=== PATIENT | female | born 2000 | race Caucasian/White ===

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

== ENCOUNTER 2021-03-17 23:29 | Emergency (ER) | payer OTHER, MEDICAID, SELFPAY ==
[2021-03-17 23:17] VITALS: BP 136/92; PULSE 95; RESP 18; TEMP 36.6; O2SAT 98; BMI 26.5
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
[2021-03-18 01:20] VITALS: BP 136/92; PULSE 89; RESP 16; O2SAT 99
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
== END 2021-03-18 01:21 | disposition home or self-care (01) ==
PROVIDERS: Emergency Provider Emergency Medicine; PCP Nurse Practitioner
DX: S02.2XXA Fracture of nasal bones, initial encounter for closed fracture (principal); V49.9XXA Car occupant (driver) (passenger) injured in unspecified traffic accident, initial encounter
CPT/HCPCS: 70450; 70486; 72125; 99282

== ENCOUNTER → 2021-03-28 09:39 | Outpatient (BNVA) | payer MEDICAID, SELFPAY | PROVIDERS: PCP Nurse Practitioner; Visit Provider Nurse Practitioner | DX: E55.9 Vitamin D deficiency, unspecified (principal) | CPT/HCPCS: 80053; 82306 ==

== ENCOUNTER → 2021-04-10 11:29 | Outpatient (BNVA) | payer MEDICAID, SELFPAY | PROVIDERS: PCP Nurse Practitioner; Visit Provider Registered Nurse Neonatal Intensive Care | DX: N39.0 Urinary tract infection, site not specified (principal) | CPT/HCPCS: 81000 ==

== ENCOUNTER → 2021-04-18 10:04 | Outpatient (BNVA) | payer MEDICAID, SELFPAY | PROVIDERS: PCP Nurse Practitioner; Visit Provider Nurse Practitioner | DX: N39.0 Urinary tract infection, site not specified (principal); R39.9 Unspecified symptoms and signs involving the genitourinary system | CPT/HCPCS: 81000 ==

== ENCOUNTER 2021-07-04 10:19 | Outpatient (CLI) | payer MEDICAID, SELFPAY ==
--- NOTE | 2021-07-04 10:15 | US_ITS ---
WS: [id number] THYROID ULTRASOUND HISTORY: E04.1 - Nontoxic single thyroid nodule COMPARISON: 07/22/2020 Right lobe: 1.7 cm x 1.9 cm x 4.3 cm (w x ap x l). Volume: 7.3 cm3. Gland is very slightly enlarged. No mass. Very coarse echotexture throughout. No solid or cystic nodu les. Mild increased vascularity. Left lobe: 1.3 cm x 1.2 cm x 3.2 cm (w x ap x l). Volume: 2.7 cm3. Small thyroid with mild coarsened echotexture. Mild increased vascularity. No solid or cystic nodules . Isthmus: 0.5 cm. US/US thyroid [id number] IMPRESSION: 1. Mild coarse echotexture throughout the gland. Slight increased vascularity suggesting Montrell's disease. 2. No thyroid nodule.
== END 2021-07-04 10:20 | disposition home or self-care (01) ==
LOC: RAD 10:23
PROVIDERS: PCP Nurse Practitioner; Visit Provider Nurse Practitioner
DX: E04.1 Nontoxic single thyroid nodule (principal)
CPT/HCPCS: 76536

== ENCOUNTER → 2021-07-11 09:51 | Outpatient (BNVA) | payer MEDICAID, SELFPAY | PROVIDERS: PCP Nurse Practitioner; Visit Provider Nurse Practitioner | DX: E04.1 Nontoxic single thyroid nodule (principal) | CPT/HCPCS: 86800 ==

== ENCOUNTER → 2021-07-19 08:46 | Outpatient (BNVA) | payer MEDICAID, SELFPAY | PROVIDERS: PCP Nurse Practitioner; Visit Provider Nurse Practitioner | DX: E55.9 Vitamin D deficiency, unspecified (principal); E04.1 Nontoxic single thyroid nodule | CPT/HCPCS: 82306; 84443 ==

== ENCOUNTER → 2021-09-04 09:08 | Outpatient (BNVA) | payer MEDICAID, SELFPAY | PROVIDERS: PCP Nurse Practitioner; Visit Provider Nurse Practitioner | DX: E04.1 Nontoxic single thyroid nodule (principal) | CPT/HCPCS: 84443 ==

== ENCOUNTER → 2021-12-13 10:57 | Outpatient (BNVA) | payer MEDICAID, SELFPAY | PROVIDERS: PCP Nurse Practitioner; Visit Provider Nurse Practitioner | DX: E04.1 Nontoxic single thyroid nodule (principal); E55.9 Vitamin D deficiency, unspecified; E61.1 Iron deficiency | CPT/HCPCS: 80053; 82306; 83540; 84443 ==

== ENCOUNTER 2022-03-12 12:43 | Outpatient (CLI) | payer MEDICAID, SELFPAY ==
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
== END 2022-03-12 12:44 | disposition home or self-care (01) ==
LOC: RAD 12:44
PROVIDERS: PCP Nurse Practitioner; Visit Provider Nurse Practitioner Family
DX: D17.23 Benign lipomatous neoplasm of skin and subcutaneous tissue of right leg (principal)
CPT/HCPCS: 76882

== ENCOUNTER 2022-06-08 16:03 | Outpatient (CLI) | payer MEDICAID, SELFPAY ==
--- NOTE | 2022-06-08 | US_ITS ---
WS: [id number] THYROID ULTRASOUND HISTORY: Thyromegaly COMPARISON: 07/04/2021 Right lobe: 1.5 cm x 1.3 cm x 4.5 cm (w x ap x l). Volume: 4.3 cm3. Normal size gland with multiple coarse echotexture. No mass or nodule. No increased vascularity. Left lobe: 1.5 cm x 1.0 cm x 4.1 cm (w x ap x l). Volume: 3.2 cm3. Normal size gland with mild coarse echotexture. No mass or nodule. No increased vascularity. Isthmus: 0.2 cm. US/US thyroid [id number] IMPRESSION: 1. No increased vascularity throughout the gland to suggest acute thyroiditis. 2. No nodules or mass is identified. No significant enlargement.
== END 2022-06-08 16:04 | disposition home or self-care (01) ==
LOC: RAD 16:04
PROVIDERS: PCP Nurse Practitioner Family; Visit Provider Nurse Practitioner Family
DX: E01.0 Iodine-deficiency related diffuse (endemic) goiter (principal)
CPT/HCPCS: 76536

== ENCOUNTER → 2022-09-04 09:20 | Outpatient (BNVA) | payer MEDICAID, SELFPAY | PROVIDERS: PCP Nurse Practitioner Family; Visit Provider Nurse Practitioner Women's Health | DX: Z01.419 Encounter for gynecological examination (general) (routine) without abnormal findings (principal); L03.90 Cellulitis, unspecified | CPT/HCPCS: 88175 ==

== ENCOUNTER → 2022-12-18 08:37 | Outpatient (BNVA) | payer MEDICAID, SELFPAY | PROVIDERS: PCP Nurse Practitioner Family; Visit Provider Nurse Practitioner Women's Health | DX: Z34.90 Encounter for supervision of normal pregnancy, unspecified, unspecified trimester (principal); Z3A.00 Weeks of gestation of pregnancy not specified | CPT/HCPCS: 76817 ==

== ENCOUNTER 2022-12-18 09:48 | Outpatient (CLI) | payer MEDICAID, SELFPAY ==
[2022-12-18 10:13] LABS: Basophils % 0.6 %; Eosinophils # 0.1 10^3/uL (0.0-0.8); Eosinophils % 1.5 %; Hematocrit 40.7 % (37.0-47.0); Hemoglobin 13.8 g/dL (11.5-15.3); Lymphocytes # 2.8 10^3/uL (0.8-4.8); Lymphocytes % 42.2 %; Mean Corpuscular HGB Conc 33.9 g/dL (30.0-36.0); Mean Corpuscular Hemoglobin 30.9 pg (28.0-34.0); Mean Corpuscular Volume 91.1 fl (81-99); Mean Platelet Volume 9.3 fL (7.4-10.4); Monocytes # 0.5 10^3/uL (0.2-0.9); Monocytes % 7.8 %; Neutrophils % 47.6 %; Nucleated Red Blood Cells % 0 %; Platelet Count 321 10^3/cmm (130-400); Red Blood Count 4.47 10^6/uL (4.1-5.3); White Blood Count 6.5 10^3/uL (4.0-10.0)
== END 2022-12-18 09:49 | disposition home or self-care (01) ==
PROVIDERS: PCP Nurse Practitioner Family; Visit Provider Nurse Practitioner Women's Health
DX: O02.1 Missed abortion (principal)
CPT/HCPCS: 36415; 85025; 86850; 86900

== ENCOUNTER 2022-12-20 15:09 | Outpatient (CLI) | payer MEDICAID, SELFPAY ==
[2022-12-20 17:05] LABS: HCG Quantitative 3.03 mIU/mL
== END 2022-12-20 15:10 | disposition home or self-care (01) ==
PROVIDERS: PCP Nurse Practitioner Family; Visit Provider Nurse Practitioner Women's Health
DX: O02.1 Missed abortion (principal)
CPT/HCPCS: 36415; 84702

== ENCOUNTER 2022-12-22 11:25 | Outpatient (CLI) | payer MEDICAID, SELFPAY ==
[2022-12-22 12:19] LABS: HCG Quantitative 2.49 mIU/mL
== END 2022-12-22 11:26 | disposition home or self-care (01) ==
PROVIDERS: PCP Nurse Practitioner Family; Visit Provider Nurse Practitioner Women's Health
DX: N92.6 Irregular menstruation, unspecified (principal); O20.0 Threatened abortion
CPT/HCPCS: 36415; 84702

== ENCOUNTER → 2022-12-31 11:43 | Outpatient (BNVA) | payer MEDICAID, SELFPAY | PROVIDERS: PCP Nurse Practitioner Family; Visit Provider Nurse Practitioner Women's Health | DX: R10.2 Pelvic and perineal pain (principal); O72.2 Delayed and secondary postpartum hemorrhage | CPT/HCPCS: 76817 ==

== ENCOUNTER → 2023-03-19 08:30 | Outpatient (BNVA) | payer MEDICAID, SELFPAY | PROVIDERS: PCP Nurse Practitioner Family; Visit Provider Nurse Practitioner Women's Health | DX: Z31.9 Encounter for procreative management, unspecified (principal) | CPT/HCPCS: 84144 ==

== ENCOUNTER → 2023-04-08 14:24 | Outpatient (BNVA) | payer MEDICAID, SELFPAY | PROVIDERS: PCP Nurse Practitioner Family; Visit Provider Dermatology | DX: L70.0 Acne vulgaris (principal); D48.5 Neoplasm of uncertain behavior of skin | CPT/HCPCS: 11102; 99204 ==

== ENCOUNTER → 2023-08-07 14:18 | Outpatient (BNVA) | payer MEDICAID, SELFPAY | PROVIDERS: PCP Nurse Practitioner Family; Visit Provider Dermatology | DX: L70.0 Acne vulgaris (principal) | CPT/HCPCS: 99214 ==

== ENCOUNTER 2023-10-08 13:24 | Emergency (ER) | payer MEDICAID, SELFPAY ==
[2023-10-08 13:52] VITALS: BP 120/84; PULSE 85; RESP 16; TEMP 36.8; O2SAT 100; BMI 32.2
--- NOTE | 2023-10-08 14:07 | ED_ITS ---
HPI - Animal Bite General: Chief Complaint: Animal Bite Stated Complaint: Health dep. sent, rabies shot, dog bite Time Seen by Provider: 10/08/23 13:25 Source: patient Mode of arrival: ambulatory Limitations: no limitations History of Present Illness: Patient is a 23-year-old female presents to ED today for rabies postexposure prophylaxis as directed by the health department. Patient states she was bitten by a stray dog to the dorsal aspect of her right hand yesterday. She states she was petting the dog when it became skittish and bit her. Dog cannot be quarantined and monitored. Dog appeared well. She was seen at a [facility] and [facility] earlier today and had her tetanus updated and was placed on Augmentin. MD complaint: animal bite Onset (ago): day(s) (yesterday) Animal: dog Description of animal: immunizations unknown and appeared ill Mechanism: bite Location - Extremities: Right: hand Context: playing with animal and provoked Associated symptoms: Reports no associated symptoms; Deny fever(s) Related Data: Patient tetanus UTD: Yes Review of Systems Const: Denies: fever(s) Musc: Reports: extremity pain (bite to dorsal R hand) Neuro: Denies: numbness in extremities or sensory changes PFS ED PFSH: Medical History Encounter for surveillance of vaginal ring hormonal contraceptive device Body mass index 28.0-28.9, adult Benign thyroid cyst Vitamin D deficiency Iron deficiency Social anxiety disorder Surgical History No history of previous surgery Family History Grandmother Diabetes Other Hypertension Social History Smoking and tobacco/nicotine status: never used tobacco/nicotine Second hand smoke exposure: No Alcohol intake: never Substance/Drug Use: never Adopted: No Caregiver/support person: No Lives independently: Yes (family) Household members: family Housing: House Marital status: Single Number of children: 0 Highest education level completed: High School Graduate service: No Current occupational status: employed Current occupation: [employer] Current occupational exposures/hazards: No Pets and animals: Yes Do you think of yourself as: Straight/Heterosexual Current gender identity: Female Physical Exam Const: COMMON NORMALS: no acute distress, no limitations, healthy appearing and well nourished Extremity: COMMON NORMALS: full ROM GENERAL: Yes normal exam except as noted RIGHT UPPER EXTREMITY: Yes hand & digits (small 1-2mm puncture wound R dorsal hand near 3-4 MCP) Right hand and digits: Yes inspection (puncture site- small surrounding erythema; no drainage/streaking), Yes ROM exam (normal), Yes neurovascular exam (normal) and Yes tendon exam (normal) Neuro: COMMON NORMALS: moves all extremities, no focal motor deficits and no sensory deficits noted Skin: NARRATIVE SKIN EXAM: see above Course Vital Signs: Vital signs: Vital Signs Temperature 98.2 F 10/08/23 13:52 Pulse Rate 85 10/08/23 13:52 Respiratory Rate 16 10/08/23 13:52 Blood Pressure 120/84 10/08/23 13:52 Pulse Oximetry 100 10/08/23 13:52 Oxygen Delivery Me thod Room Air 10/08/23 13:52 [facility] - Animal Bite Medical Decision Making Patient had tetanus given to her earlier today at the [facility]. She has a prescription of Augmentin already called into her pharmacy. Patient was started on rabies PEP today. She will be given a schedule for remainder of vaccination series. Differential Diagnosis Likely bite by animal and dog bite Medical Records I reviewed the patient's medical records. No radiology studies performed this visit Discharge Plan Discharge Patient Disposition: Home Clinical Impression: Dog bite of right hand Condition: Stable Prescriptions: No Action levothyroxine 25 mcg tablet 25 mcg PO DAILY Qty: 30 5RF multivitamin Tablet 1 tab PO DAILY Discharge Orders: Discharge ED (Routine); Ordered 10/08/23 Ordered By: Regla Ortiz Referrals: Zaira Roa APN [Primary Care Provider] - Patient Instructions: Rabies Vaccine (By injection), Rabies Immune Globulin (By injection), Animal Bite (ED) Activity Restrictions/Additional Instructions: Fill your antibiotics and start them immediately. Keep wound clean with warm soap and water. Monitor for worsening signs of infection such as increased pain, redness, swelling, purulent or odorous drainage, streaking up your hand or arm, fevers, or any other concerns you may have. Please seek medical re- evaluation if these occur. You should have been provided a schedule for your repeat immunizations on days 3, 7, and 14. Coding Level of Care Code ED Fulling Mill Operator for Yennifer Grant
[2023-10-08] MEDS: rabies vaccine 2.5 unit SDV IM (14:34)
[2023-10-08] MEDS: rabies IG 300 unit/mL SDV 1 mL 1650 UNIT IM (14:36)
== END 2023-10-08 14:56 | disposition home or self-care (01) ==
PROVIDERS: Emergency Provider Physician Assistant; PCP Nurse Practitioner Family
DX: Z29.14 Encounter for prophylactic rabies immune globulin (principal); Z20.3 Contact with and (suspected) exposure to rabies; W54.0XXA Bitten by dog, initial encounter; S61.451A Open bite of right hand, initial encounter; Z23 Encounter for immunization
CPT/HCPCS: 90375; 90471; 90675; 96372; 99283

== ENCOUNTER 2023-10-11 09:35 | Oncology outpatient (recurring) (ONCR) | payer MEDICAID, SELFPAY ==
[2023-10-11] MEDS: rabies vaccine 2.5 unit SDV IM (10:53)
== END 2023-10-11 23:59 | disposition home or self-care (01) ==
PROVIDERS: PCP Nurse Practitioner Family; Visit Provider Physician Assistant
DX: Z20.3 Contact with and (suspected) exposure to rabies (principal); Z23 Encounter for immunization; S61.451A Open bite of right hand, initial encounter; W54.0XXA Bitten by dog, initial encounter; Z53.9 Procedure and treatment not carried out, unspecified reason
CPT/HCPCS: 90471; 90675

== ENCOUNTER 2023-10-22 10:00 | Oncology outpatient (recurring) (ONCR) | payer MEDICAID, SELFPAY ==
[2023-10-15] MEDS: rabies vaccine 2.5 unit SDV IM (11:04)
[2023-10-22 10:03] VITALS: BP 122/78; PULSE 91; RESP 16; TEMP 36.2; O2SAT 99
[2023-10-22] MEDS: rabies vaccine 2.5 unit SDV IM (10:07)
== END 2023-11-10 23:59 | disposition home or self-care (01) ==
PROVIDERS: PCP Nurse Practitioner Family; Visit Provider Physician Assistant
DX: Z20.3 Contact with and (suspected) exposure to rabies (principal); Z23 Encounter for immunization; S61.451A Open bite of right hand, initial encounter; W24.0XXA Contact with lifting devices, not elsewhere classified, initial encounter; Z53.9 Procedure and treatment not carried out, unspecified reason
CPT/HCPCS: 90471; 90675

== ENCOUNTER → 2024-02-26 15:16 | Outpatient (BNVA) | payer MEDICAID, SELFPAY | PROVIDERS: PCP Nurse Practitioner Family; Visit Provider Obstetrics & Gynecology | DX: O26.851 Spotting complicating pregnancy, first trimester (principal); O20.0 Threatened abortion | CPT/HCPCS: 81025; 84315; 84702 ==

== ENCOUNTER → 2024-02-28 09:25 | Outpatient (BNVA) | payer MEDICAID, SELFPAY | PROVIDERS: PCP Nurse Practitioner Family; Visit Provider Obstetrics & Gynecology | DX: O20.0 Threatened abortion (principal) | CPT/HCPCS: 84702 ==

== ENCOUNTER → 2024-03-04 10:48 | Outpatient (BNVA) | payer MEDICAID, SELFPAY | PROVIDERS: PCP Nurse Practitioner Family; Visit Provider Obstetrics & Gynecology | DX: Z34.90 Encounter for supervision of normal pregnancy, unspecified, unspecified trimester (principal) | CPT/HCPCS: 84702 ==

== ENCOUNTER → 2024-03-19 12:24 | Outpatient (BNVA) | payer MEDICAID, SELFPAY | PROVIDERS: PCP Nurse Practitioner Family; Visit Provider Obstetrics & Gynecology | DX: N83.201 Unspecified ovarian cyst, right side (principal) | CPT/HCPCS: 76801 ==

== ENCOUNTER → 2024-04-07 11:00 | Outpatient (BNVA) | payer MEDICAID, SELFPAY | PROVIDERS: PCP Nurse Practitioner Family; Visit Provider Nurse Practitioner Women's Health | DX: Z34.90 Encounter for supervision of normal pregnancy, unspecified, unspecified trimester (principal); Z3A.00 Weeks of gestation of pregnancy not specified | CPT/HCPCS: 80307; 84315; 84443; 85025; 86592; 86762; 86803; 86850; 86900; 87086; 87340; 87491; 87591; 87806 ==

== ENCOUNTER → 2024-04-22 09:58 | Outpatient (BNVA) | payer MEDICAID, SELFPAY | PROVIDERS: PCP Nurse Practitioner Family; Visit Provider Obstetrics & Gynecology | DX: Z34.90 Encounter for supervision of normal pregnancy, unspecified, unspecified trimester (principal); Z3A.00 Weeks of gestation of pregnancy not specified | CPT/HCPCS: 84315; 88175 ==

== ENCOUNTER → 2024-05-19 08:37 | Outpatient (BNVA) | payer MEDICAID, SELFPAY | PROVIDERS: PCP Nurse Practitioner Family; Visit Provider Nurse Practitioner Women's Health | DX: Z34.90 Encounter for supervision of normal pregnancy, unspecified, unspecified trimester (principal) | CPT/HCPCS: 82105; 84315 ==

== ENCOUNTER → 2024-06-10 09:27 | Outpatient (BNVA) | payer MEDICAID, SELFPAY | PROVIDERS: PCP Nurse Practitioner Family; Visit Provider Obstetrics & Gynecology | DX: O26.892 Other specified pregnancy related conditions, second trimester (principal); Z3A.20 20 weeks gestation of pregnancy | CPT/HCPCS: 76805 ==

== ENCOUNTER → 2024-06-17 08:32 | Outpatient (BNVA) | payer MEDICAID, SELFPAY | PROVIDERS: PCP Nurse Practitioner Family; Visit Provider Obstetrics & Gynecology | DX: Z34.92 Encounter for supervision of normal pregnancy, unspecified, second trimester (principal) | CPT/HCPCS: 84315 ==

== ENCOUNTER → 2024-07-08 08:44 | Outpatient (BNVA) | payer MEDICAID, SELFPAY | PROVIDERS: PCP Nurse Practitioner Family; Visit Provider Nurse Practitioner Women's Health | DX: Z34.90 Encounter for supervision of normal pregnancy, unspecified, unspecified trimester (principal) | CPT/HCPCS: 84315 ==

== ENCOUNTER → 2024-08-10 10:36 | Outpatient (BNVA) | payer MEDICAID, SELFPAY | PROVIDERS: PCP Nurse Practitioner Family; Visit Provider Obstetrics & Gynecology | DX: Z34.80 Encounter for supervision of other normal pregnancy, unspecified trimester (principal) | CPT/HCPCS: 82950; 84315; 85025 ==

== ENCOUNTER → 2024-08-24 10:58 | Outpatient (BNVA) | payer MEDICAID, SELFPAY | PROVIDERS: PCP Nurse Practitioner Family; Visit Provider Obstetrics & Gynecology | DX: Z34.90 Encounter for supervision of normal pregnancy, unspecified, unspecified trimester (principal); Z3A.10 10 weeks gestation of pregnancy | CPT/HCPCS: 84315 ==

== ENCOUNTER → 2024-08-27 13:04 | Outpatient (BNVA) | payer MEDICAID, SELFPAY | PROVIDERS: PCP Nurse Practitioner Family; Visit Provider Obstetrics & Gynecology | DX: O26.893 Other specified pregnancy related conditions, third trimester (principal); Z3A.32 32 weeks gestation of pregnancy | CPT/HCPCS: 76816 ==

== ENCOUNTER → 2024-09-01 08:32 | Outpatient (BNVA) | payer MEDICAID, SELFPAY | PROVIDERS: PCP Nurse Practitioner Family; Visit Provider Nurse Practitioner Women's Health | DX: Z34.90 Encounter for supervision of normal pregnancy, unspecified, unspecified trimester (principal) | CPT/HCPCS: 84315 ==

== ENCOUNTER → 2024-09-21 09:17 | Outpatient (BNVA) | payer MEDICAID, SELFPAY | PROVIDERS: PCP Nurse Practitioner Family; Visit Provider Nurse Practitioner Women's Health | DX: Z34.90 Encounter for supervision of normal pregnancy, unspecified, unspecified trimester (principal) | CPT/HCPCS: 76816; 84315 ==

== ENCOUNTER 2024-09-28 14:19 | Outpatient (CLI) | payer MEDICAID, SELFPAY ==
[2024-09-28 14:16] VITALS: BMI 38.6
[2024-09-28 14:38] VITALS: BP 119/66; PULSE 102; TEMP 35.5
[2024-09-28 14:53] VITALS: BP 114/57; PULSE 80
[2024-09-28 14:58] VITALS: TEMP 36.6
[2024-09-28 15:08] VITALS: BP 116/64; PULSE 85
[2024-09-28 15:29] VITALS: BP 116/64; PULSE 85; RESP 16; O2SAT 98
== END 2024-09-28 15:25 | disposition home or self-care (01) ==
LOC: OPOB 14:22 → OBGYN 14:28
PROVIDERS: PCP Nurse Practitioner Family; Visit Provider Obstetrics & Gynecology
DX: O26.899 Other specified pregnancy related conditions, unspecified trimester (principal); Z3A.00 Weeks of gestation of pregnancy not specified; R25.2 Cramp and spasm
CPT/HCPCS: 59025; 99211

== ENCOUNTER → 2024-10-08 12:13 | Outpatient (BNVA) | payer MEDICAID, SELFPAY | PROVIDERS: PCP Nurse Practitioner Family; Visit Provider Nurse Practitioner Women's Health | DX: Z3A.10 10 weeks gestation of pregnancy (principal) | CPT/HCPCS: 84315; 87081 ==

== ENCOUNTER → 2024-10-14 07:54 | Outpatient (BNVA) | payer MEDICAID, SELFPAY | PROVIDERS: PCP Nurse Practitioner Family; Visit Provider Obstetrics & Gynecology | DX: Z34.90 Encounter for supervision of normal pregnancy, unspecified, unspecified trimester (principal) | CPT/HCPCS: 84315 ==

== ENCOUNTER 2024-10-23 04:53 | Inpatient (IN) | payer MEDICAID, SELFPAY ==
--- OUTSIDE RECORDS SUMMARY | 2024-03-19 06:40 | XMS_ITS ---
Author Organization [facility] Address [address] [place] [address] Care Team Providers Care Senior Partner Name Role Phone Joel Roa Primary Care Provider ROA, JOEL Unavailable Unavailable REASON FOR VISIT 1 month f/u Encounters Encounter Location Date Provider Diagnosis [facility] Office [address] [place] [id number] 03/19/2024 Joel Roa Plan Of Treatment No Information Progress Notes * ANDRAEManishMariel SDOB:2000 (24 yo F)Acc No.[id number]:03/19/2024 Progress Notes Patient: Mariel SMITH Provider: Matt Roa PATIENT COORDINATOR :2000 A ge:23 Y S ex:Female Date:03/19/2024 Address:[address] [place] [address] [id number] Subjective: * Chief Complaints: * 1 . 1 month f/u. * Medical History: Objective: * Vitals: Assessment: Plan: * Treatment: Forms: * Billing Information: * Visit Code: * Procedure Codes: Care Plan Details* * Electronic signature of Erich Roa APN on 10/23/2024 at 04:57 AM CDT Sign off status: Pending * Provider: Matt Roa PATIENT COORDINATOR Date: 1 05/19/2023 Generated for Printi ng/Faxing/eTransmitting on: 0 10/23/2024 04:57 AM CDT
--- NOTE | 2024-10-21 09:51 | P.ANESASSM_ITS ---
Pre-Anesthetic Assessment Height/Weight: Height 1.6 m Preop Diagnosis: IUP - breech position Familial anesthetic complications: None Social No alcohol and No tobacco Exam alert, oriented x 3, clear to auscultation bilaterally and regular rate & rhythm Airway Mallampati: Class II Dentition: full Metabolic Morbid Obesity and Thyroid Disease Anesthetic Plan ASA status: 3 Anesthesia: Regional (specify below) Other: spinal Risk of > 500 ml blood loss (7ml/kg in children): Yes, adequate IV access and fluids planned Medications/Allergies Home Medications ?Medication ?Instructions ?Recorded ?Confirmed ?Last Taken ?Type multivitamin 1 tab PO DAILY 01/28/2310/11 Unknown History clindamycin phosphate 1 % topical 1 applic topical SAIGE LY 03/04/24 10/21/24 Unknown History solution levothyroxine 25 mcg tablet 50 mcg PO DAILY 05/19/24 0 10/21/24 Unknown History famotidine 20 mg tablet See Rx Instructions .Route 0 10/08/24 10/21/24 Unknown Rx .COMPLEX #60 tabs Allergies Allergy/AdvReac Type Severity Reaction Status Date / Time No Known Allergies Allergy Verified 10/21/24 08:11 [facility] Anesthesia Medical History Encounter for surveillance of vaginal ring hormonal contraceptive device Body mass index 28.0-28.9, adult Benign thyroid cyst Vitamin D deficiency Iron deficiency Social anxiety disorder Surgical History No history of previous surgery Family History Grandmother Diabetes Other Hypertension Social History Smoking and tobacco/nicotine status: never used tobacco/nicotine
[2024-10-23] VITALS (33 sets, daily range): BP systolic 102–129; BP diastolic 52–78; PULSE 63–97; RESP 15–16; TEMP 36.6–36.9; O2SAT 96–98; BMI 39.8
--- OUTSIDE RECORDS SUMMARY | 2024-10-23 04:57 | XMS_ITS | Patient Health Record ---
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 Name Role Phone [facility] Primary Care Provider [facility] Unavailable Unavailable Allergies Allergen (clinical drug ingredient) Drug/Non Drug Allergy documented on EMR Reaction Allergy Type Onset Date Status Substance with sulfonamide structure and antibacterial mechanism of action (substance) Sulfa Antibiotics Unknown Drug Allergy Active Reason For Referral No Information Medications Medication SIG (Take, Route, Frequency, Duration) Notes Start Date End Date Status M- Plus 27-1 MG 1 tablet Orally Onc e a day for 30 days 02/17/2024 Active Clindamycin Phos-Benzoyl Perox 1.2-5 % APPLY TO CLEAN DRY FACE ONCE DAILY IN THE MORNING External for 30 Days Active Phentermine HCl 37.5 MG TAKE ONE TABLET BY MOUTH DAILY (30 DAYS) Oral for 30 Days Not-Taking Levothyroxine Sodium 50 mcg TAKE ONE TABLET BY MOUTH ONCE DAILY for 30 Active Active Retin-A 0.1 % apply pea sized amou nt TO clean, dry face nightly External for 30 Days Not-Taking Fluconazole 150 mg TAKE ONE TABLET BY MOUTH EVERY DAY FOR 3 DAYS for 3 Not-Taking Immunizations Vaccine Route Administration Date Status Comme nts Flucelvax Quadrivalent IM Intramuscular 02/19/2023 Administered [facility] [address]-03 pt tolerated well/instructed to wait 20 min Flucelvax Quadrivalent Pres Free IM Intramuscular 03/01/2022 Administered [facility] [address]-839-2 3 pt tolerated well/instructed to wait 20 min Flucelvax Trivalent, Syringe 0.5 mL, PF IM Intramuscular 02/17/2024 Administered supplied by [facility]/pt tolerated well/instructed to wait 20 min Tdap IM Intramuscular 10/08/2023 Administered vial s upplied by [facility]/pt tolerated well/instructed to wait 20 min Social History Tobacco Use: Social History Observation Description Date Details (start date - stop date) Never Smoker NA - NA xTobacco Use/Smoking Question Answer Notes Are you a nonsmoker Alcohol Screen (Audit-C) Question Answer Notes Did you have a drink containing alcohol in the p ast year? No Points 0 Interpretation Negative PHQ-9 Question Answer Notes Little interest or pleasure in doing things Not at all Feeling down, depressed, or hopeless Not at all Trouble falling or staying asleep, or sleeping t oo much Not at all Feeling tired or having little energy Not at all Poor appetite or overeating Not at all Feeling bad about yourself, or that you are a failure, or have let yourself or your family down Not at all Trouble concentrating on thi ngs, such as reading the newspaper or watching television Not at all Moving or speaking so slowly that other people could have noticed. Or the opposite ? being so fidgety or restless that you have been moving around a lot more than usual Not at all Thoughts that you would be b roly off , or of hurting yourself in some way Not at all Total Score 0 Section Notes: 01/29/2022 01/29/2022 01/29/2022 01/29/2022 Depression screening 06/29/19 23 Depression screening 06/29/19 23 Depression screening 06/29/19 23 Depression screen completed 10/01/2023 score 0 Depression screen completed 10/01/2023 score 0 Depression screen completed 10/01/2023 score 0 Depression screen completed 10/01/2023 score 0 Depression screen completed 10/01/2023 score 0 Depression screen completed 10/01/2023 score 0 01/29/2022 Depression screening 06/29/19 23 Problems Problem Type SNOMED Code ICD Code Onset Dates Problem Status W/U Status Risk Notes Problem Body mass index 30.00 to 34.99 (648226649165647) Body mass index [BMI] 34.0-34.9, adult (Z68.34) Active confirmed Problem 940618951 Body mass index [BMI] 31.0-31.9, adult (Z68.31) Active confirmed Problem 3267781091014381 Lipoma of right lower extremity (D17.23) Active confirmed Problem 24468808 Acute swimmer's ear of left side (H60.332) Active confirmed Problem 532131804 Environmental allergies (Z91.09) Active confirmed Problem 575909420 Acquired hypothyroidism (E03.9) Active confirmed Problem [id number] Obesity (BMI 30.0-34.9) (E66.9) Active confirmed Problem 400003381 Overweight (BMI 25.0-29.9) (E66.3) Active confirmed Problem 8522948 Thyromegaly (E01.0) Active confirmed Problem 486685741 Obesity (BMI 30-39.9) (E66.9) Active confirmed Problem 03184281 Acute non-recurrent maxillary sinusitis (J01.00) Active confirmed Problem Amenorrhea (48174521) Amenorrhea (N91.2) Active confirmed Problem 842365348 Obesity, morbid (E66.01) Active confirmed Problem 576672188 Overweight (E66.3) Active confirmed Vital Signs Heart Rate 106 /min 02/17/2024 Temperature 97.5 degrees Fahrenheit 01/17/2024 Respiratory Rate 18 /min 02/17/2024 Height-cm 160.02 cm 02/17/2024 Oximetry 99 % 02/17/2024 Blood pressure diastolic 75 mm Hg 02/17/2024 Weight-kg 74.84 kg 02/17/2024 Height 63 in 02/17/2024 Blood pressure systolic 128 mm Hg 02/17/2024 Weight 165 lbs 02/17/2024 BMI 29.23 kg/m2 02/17/2024 Encounters Encounter Location Date Provider Diagnosis [facility] [address] [address] 11/12/2023 Zaira Roa Obesity (BMI 30-39.9 ) E66.9 [facility] [address] [place] [address] 12/17/2023 Zaira Roa Obesity (BMI 30-39.9 ) E66.9 and Acquired hypothyroidism E03.9 [facility] [address] [facility] [address] [place] [address] 01/17/2024 [facility] Overweight (BMI 25.0-29.9) E66.3 and Acquired hypothyroidism E03.9 [facility] [address] [address] 02/17/2024 [facility] Amenorrhea N91.2 ; A cne L70.9 ; Encounter for immunization Z23 ; Z33.1 and Encounter for administration of vaccine Z23 Assessments Encounter Date Diagnosis (ICD Code) Assessment Notes Treatment Notes Treatment Clinical Notes Section Notes 02/17/2024 Amenorrhea (ICD-10 - N91.2) urine test; negative initially; then positive; slight faint vitamin 02/17/2024 Acne (ICD-10 - L70.9) clindamycin topical 01/17/2024 Overweight (BMI 25.0-29.9) (ICD-10 - E66.3) Discussed with the diet, increase water intake, increase activity, decrease calorie intake, take medication as directed; phentermine e script to patient pharmacy. Patient to lose minimum of 4 pounds and return to clinic 1 month and prn. Pts questions asked and answered. Discharged to home. 01/17/2024 Acquired hypothyroidism (ICD-10 - E03.9) levothyroxine 11/12/2023 Obesity (BMI 30-39.9) (ICD-10 - E66.9) Discussed with the diet, increase water intake, increase activity, decrease calorie intake, take medication as directed; phentermine e script to patient pharmacy. Patient to lose minimum of 4 pounds and return to clinic 1 month and prn. Pts questions asked and answered. Discharged to home. 12/17/2023 Obesity (BMI 30-39.9) (ICD-10 - E66.9) Discussed with the diet, increase water intake, increase activity, decrease calorie intake, take medication as directed; phentermine e script to patient pharmacy. Patient to lose minimum of 4 pounds and return to clinic 1 month and prn. Pts questions asked and answered. Discharged to home. 12/17/2023 Acquired hypothyroidism (ICD-10 - E03.9) levothyroxine 02/17/2024 Encounter for immunization (ICD-10 - Z23) flu shot Immunization supplied by [employer]. 02/17/2024 (ICD-10 - Z33.1) 02/17/2024 Encounter for administration of vaccine (ICD-10 - Z23) 11/12/2023 Other Questions asked and answered; discharged to home. 12/17/2023 Other Questions asked and answered; discharged to home. 01/17/2024 Other Questions asked and answered; discharged to home. 02/17/2024 Other Questions asked and answered; discharged to home. Give Flu vaccine as directed per provider Plan Of Treatment No Information Insurance Providers Payer Name Payer Address Payer Phone Subscriber Number Group Number Insured Name Patient Relationship to Insured Coverage Start Date Coverage End Date [place] Medicaid [address] [place] [address] [id number] Mariel Abebe Self - patient is the insured Medical (General) History Medical History History ICD Code chronic bladder infections hives anxiety fractured nose thyroid problems Surgical History Surgery Date(Month/Year) wisdom teeth extraction
--- OUTSIDE RECORDS SUMMARY | 2024-10-23 04:57 | XMS_ITS | Clinical Summary ---
Author Organization [facility] Address [address] Merchantn: Epic Prelude ADT ELIZABETH CACERES [address] Care Team Providers Care Science Technicians Name Role Phone German Buchanan NP Primary Care Provider Allergies No known active allergies Medications norgestimate-eth inyl estradioL (ORTHO TRI-CYCLEN) 0.18/0.215/0.25 mg-35 mcg (28) tablet Take 1 Tablet by mouth daily. 01/20/2019 Active sertraline (ZOLOFT) 25 mg tablet Take 25 mg by mouth daily. 01/20/2019 Active naproxen sodium (ALEVE) 220 mg Tablet Take 220 mg by mouth every 4 hours as needed for Pain, Moderate. 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 Gender Identity Not on file Sexual Orientation Not on file Last Filed Vital Signs Vital Sign Reading Time Taken Comments Blood Pressure 118/72 01/20/2019 12:01 PM CDT manual bp lg rt Pulse 74 01/20/2019 12:01 PM CDT Temperature - - Respiratory Rate - - Oxygen Saturation - - Inhaled Oxygen Concentration - - Weight 68.9 kg (151 lb 14.4 oz) 01/20/2019 12:01 PM CDT Height 158.8 cm (5' 2.52 ) 01/20/2019 1 2:01 PM CDT Body Mass Index 27.32 01/20/2019 12:01 PM CDT Plan of Treatment Health Maintenance Due Date Last Done Comments CHLAMYDIA SCREENING (ANNUAL) 11-24 YEARS 2012 HPV VACCINES (1 - 3-dose series) 2016 DTAP/TDAP/TD VACCINES (1 - Tdap) 2020 HEPATITIS B VACCINES (1 of 3 - 19+ 3-dose series) 08/12 CERVICAL CANCER SCREENING 2022 HPV/Cotest (21-29) 2022 PAP SMEAR 2022 INFLUENZA VACCINE (#1) 2023 Care Teams Science Technicians Relationship Specialty Start Date End Date German Buchanan NP [address] [place] [phone] PCP - General NURSE PRACTITIONER 01/15/19
--- OUTSIDE RECORDS SUMMARY | 2024-10-23 04:57 | XMS_ITS | Clinical Summary ---
Author Organization [facility] Address [address] [place] [address] Care Team Providers Care Family Protection Specialist Name Role Phone German Buchanan NP Primary Care Provider Allergies No known active allergies Medications naproxen sodium (ALEVE) 220 mg Tablet Take 220 mg by mouth every 4 hours as needed for Pain, Moderate. Active norgestimate-eth inyl estradiol (TRI-SPRINTEC, 28,) 0.18/0.215/0.25 mg-35 mcg (28) tablet Take 1 Tablet by mouth daily. Active sertraline (ZOLOFT) 25 mg tablet Take 25 mg by mouth daily. Active Active Problems No known active problems Social History Tobacco Use Types Packs/Day Years Used Date Smoking Tobacco: Never Comments Unknown Sex and Gender Information Value Date Recorded Sex Assigned at Not on file Legal Sex Female 8:59 AM CDT Gender Identity Not on file Sexual Orientation [...] PAP SMEAR 2022 INFLUENZA VACCINE (#1) 2023 Insurance [facility] [employer] Care Teams Family Protection Specialist Relationship Specialty Start Date End Date German Buchanan NP [address] [place] [address] PCP - General NURSE PRACTITIONER 01/15/19
--- OUTSIDE RECORDS SUMMARY | 2024-10-23 04:58 | XMS_ITS | Encounter Summary ---
Author Organization [facility] Address [address] [place] [address] Care Team Providers Care Resident Service Coordinator Name Role Phone German Buchanan NP Primary Care Provider [phone] Reason for Referral * Radiology Services (Routine) - Closed Specialty Diagnoses / Procedures Referred By Juan banuelos Referred To Contact Radiology Diagnoses Multiple thyroid nodules Procedures US HEAD NECK TISSUES US GUIDED ASPIRATION Mari Keller MD Phone: tel: fax: [facility] [address] [place] [address] Phone: tel: fax: Referral ID Status Reason Start Date Expiration Date Visits Re quested Visits Authorized [id number] Closed 01/21/2019 02/21/2020 1 1 Encounter Details Date Type Department Care Team (Latest Contact Info) Description 01/23/2019 Ancillary Orders [facility] Pediatric Endocrinology & Diabetes-[address] [place] [phone] Mari Keller MD [address] [place] [address] Multiple thyroid nodules Social History Tobacco Use Types Packs/Day Years Used Date Smoking Tobacco: Never Comments Unknown Sex and Gender Information Value Date Recorded Sex Assigned at Not on file Legal Sex Female 8:59 AM CDT Gender Identity Not on file Sexual Orientation Not on file documented as of this encounter Plan of Treatment Not on file documented as of this encounter Results * US HEAD NECK TISSUES (01/23/2019 2:50 PM CDT) Anatomical Region Laterality Modality Head Ultrasound 01/23/2019 2:50 PM CDT Impressions 01/23/2019 3:05 PM CDT IMPRESSION: See below. Exam: US HEAD NECK TISSUES Date/Time of Exam: 01/23/2019 2:50 PM Reason For Exam: See Diagnosis. Diagnosis: Multiple thyroid nodules. Findings: Along the superficial left mid thyroid is a 2 x 3 x 2 mm isoechoic, ill-defined nodule with a single punctate echogenic focus centrally. Additional posterior left thyroid nodule measures 0.7 x 0.4 x 0.5 cm which is slightly hyperechoic with cystic and solid components as well as a single punctate echogenic. Impression: 2 x 3 x 2 mm isoechoic, ill-defined nodule with a single punctate echogenic focus centrally. This nodule is indeterminate and FNA was not performed at this time. Given possible suspicious appearance on prior examination, a 6 follow-up ultrasound will be obtained as discussed. This was discussed with Dr. Keller. I also discussed this with the patient and the patient's mother at the time of examination. 7 mm hyperechoic, cystic and solid nodule with a single punctate echogenic focus within the mid left thyroid. Attention on follow-up is recommended. Narrative Procedure Note Eris Jackson, - 01/23/2019 IMPRESSION: See below. Exam: US HEAD NECK TISSUES Date/Time of Exam: 01/23/2019 2:50 PM Reason For Exam: See Diagnosis. Diagnosis: Multiple thyroid nodules. Findings: Along the superficial left mid thyroid is a 2 x 3 x 2 mm isoechoic, ill-defined nodule with a single punctate echogenic focus centrally. Additional posterior left thyroid nodule measures 0.7 x 0.4 x 0.5 cm which is slightly hyperechoic with cystic and solid components as well as a single punctate echogenic. Impression: 2 x 3 x 2 mm isoechoic, ill-defined nodule with a single punctate echogenic focus centrally. This nodule is indeterminate and FNA was not performed at this time. Given possible suspicious appearance on prior examination, a 6 follow-up ultrasound will be obtained as discussed. This was discussed with Dr. Keller. I also discussed this with the patient and the patient's mother at the time of examination. 7 mm hyperechoic, cystic and solid nodule with a single punctate echogenic focus within the mid left thyroid. Attention on follow-up is recommended. us Mari Keller MD US ORDERABLES Final Result documented in this encounter Visit Diagnoses Diagnosis Multiple thyroid nodules Nontoxic multinodular goiter Multiple thyroid nodules Nontoxic multinodular goiter documented in this encounter Care Teams Resident Service Coordinator Relationship Specialty Start Date End Date German Buchanan NP [address] [place] [phone] PCP - General NURSE PRACTITIONER 01/15/19 documented as of this encounter
[2024-10-23 05:32] LABS: Basophils % 0.3 %; Eosinophils # 0.1 10^3/uL (0.0-0.8); Eosinophils % 0.8 %; Hematocrit 37.7 % (36-47); Lymphocytes # 2.2 10^3/uL (0.8-4.8); Lymphocytes % 25.5 %; Mean Corpuscular HGB Conc 34.5 g/dL (30-55); Mean Corpuscular Hemoglobin 31.4 pg (27-33); Mean Corpuscular Volume 91.1 fl (85-98); Mean Platelet Volume 9.8 fL (7.4-10.4); Monocytes # 0.8 10^3/uL (0.2-0.9); Monocytes % 8.6 %; Neutrophils # 5.64 10^3/uL (1.8-7.7); Neutrophils % 64.3 %; Nucleated Red Blood Cells % 0 %; Platelet Count 221 10^3/cmm (157-399); Red Blood Count 4.14 10^6/uL (3.85-5.65); Red Cell Distribution Width 13.2 % (12.1-15.1); White Blood Count 8.76 10^3/uL (3.29-11.43)
[2024-10-23] MEDS: sodium chloride 0.9% 1,000 ML 999 ML IV (05:59)
--- NOTE | 2024-10-23 06:36 | PM.OPHPUD ---
Labor & Delivery H&P Update Date of Procedure: October 23, 2024 Date H&P Performed: 10/21/24 Changes to previous documentation: 24-year-old female with LMP 01/24/2024, DYANA 10/30/2024 at 39 weeks gestation admitted to labor and delivery for scheduled primary section due to breech presentation. Patient admits to good movement, she denies contractions, vaginal bleeding or leakage of fluid. Patient's record has been reviewed, with no changes noted. Patient was seen this morning, I introduced myself to patient and her significant other and I explained that I would be doing her surgery this morning instead of Dr. Banerjee. Risk and benefits of the procedure to include bleeding, infection, injury to pelvic organs blood vessels and nerves. Patient has had an anesthesia consultation and understand those risk as well. EFM?category 1 Admission Diagnosis: Preop diagnosis: IUP - breech position Primary indication for procedure: Roderick breech presentation at 39 weeks gestation Planned procedure: Primary section Related Problem List Diagnoses (1) 39 weeks gestation of : (2) Breech presentation, antepartum: (3) Acid reflux: On famotidine (4) Body mass index 28.0-28.9, adult: (5) Eczema: (6) Benign thyroid cyst: On levothyroxine 50 mcg p.o. daily (7) Social anxiety disorder: Currently on no medication
[2024-10-23] MEDS: famotidine 20 mg/2 mL INJ IVP (06:39)
[2024-10-23] MEDS: metoclopramide 5 mg/mL SDV 2 mL 10 MG IVP (06:39)
[2024-10-23] MEDS: ceFAZolin 2,000 mg SDV 2000 MG IVP (06:39)
--- NOTE | 2024-10-23 08:11 | P.OP_ITS ---
Operative Report Date of procedure: October 23, 2024 Pre-op diagnosis: 24-year-old female G1, P0 at 39 weeks gestation. Malpresentation (khalif breech) Post-op diagnosis: same Post-op findings: Viable male 8 pounds 4 ounces Procedure done: Primary low-transverse section Specimens removed/disposition: Placenta Surgeon: Asya Vanegas DO Anesthesia: Spinal Estimated blood loss (mL): 1,500 Complications: None Condition: stable Disposition: floor Brief History: 24-year-old female G1, P0 now G1, P1 admitted for scheduled primary section due to khalif breech presentation at 39 weeks gestation. care uncomplicated. Procedure: 24-year-old female delivered by scheduled primary section. Patient was taken to the OR suite after consents being signed and risk and benefits reviewed. Patient was positioned in the sitting position and anesthesia placed a spinal without complications. Patient was repositioned in supine position with a left lateral tilt. Adame catheter was placed in the bladder for drainage during the procedure and the abdomen prepped and draped in the standard fashion. Timeout was performed and witnessed. A Pfannenstiel incision was made with a knife and extended to the fascia. The fascia was incised and the incision lateralized. The rectus muscles was dissected from the fascia superiorly and inferiorly. The rectus muscles was entered in the midline and the peritoneum opened bluntly. A bladder flap was created with Metzenbaums and pickups and displaced with the bladder blade. A low transverse uterine incision was made with a knife and extended bluntly. The amnion was entered with clear fluid noted. The baby's blood was noted, the legs were extended through the incision, followed by the butt up to the level of the scapulas. The arms were then flexed and delivered to the incision. The body was extended vertical and the head delivered in a flexed position. Spontaneous robust cry was noted. The oral and nasal pathways bulb suctioned. The umbilical cord was clamped and cut and the baby placed on the warmer for waiting preschool head teacher to evaluate. Arterial pH and cord blood were drawn and handed off. The placenta was manually removed the uterus exteriorized and wiped clean with a moist lap sponge. IV solution containing Pitocin was started in a bolus manner. The uterus was massaged and firmed well. The cervix was gently dilated. The uterine incision was then closed with 0 Vicryl in a running interlocking stitch with good approximation and hemostasis. The posterior cul-de-sac and sidewalls were wiped clean with a moist lap sponge. The incision inspected and noted to be hemostatically intact. The uterus was replaced in the abdomen, the peritoneum and rectus muscle approximated with 2-0 Vicryl. The fascia was approximated with 0 Vicryl in a running stitch. The subcu fat approximated with 2-0 Vicryl and the skin with 4-0 Vicryl in a subcuticular manner. The incision cleansed, dried and a pressure dressing applied. The uterus was massaged and remained firm. The uterus and vaginal vault were then expressed and cleansed. Mother and both in stable satisfactory condition Weight?8 pounds 4 ounces ?01/19 EBL 1500 complications?none anesthesia?spinal Surgeon?Dr. Vanegas Related Problem List Diagnoses (1) Delivery by section: (2) 39 weeks gestation of : (3) Breech presentation, antepartum: (4) Social anxiety disorder:
[2024-10-23] MEDS: ketorolac 30 mg/mL INJ IVP ×3 (10:38→22:30)
[2024-10-23] MEDS: dextrose 5%-lactated ringers 1,000 ML 125 ML IV (10:39)
[2024-10-23 20:03] LABS: Hematocrit 32.4 % (36-47); Mean Corpuscular Hemoglobin 31.3 pg (27-33); Mean Platelet Volume 9.8 fL (7.4-10.4); Platelet Count 208 10^3/cmm (157-399); Red Blood Count 3.52 10^6/uL (3.85-5.65); Red Cell Distribution Width 13.3 % (12.1-15.1); White Blood Count 10.45 10^3/uL (3.29-11.43)
[2024-10-23] MEDS: lanolin oint 7 gm 1 APPLIC TOPICAL (20:30)
[2024-10-23] MEDS: docusate sodium 100 mg Capsule PO (20:30)
[2024-10-24] MEDS: ketorolac 30 mg/mL INJ IVP (04:29)
[2024-10-24 04:32] VITALS: BP 118/59; PULSE 77
--- NOTE | 2024-10-24 09:24 | P.PN_ITS ---
DIRECTOR OF MEDICAL SERVICES Subjective 2 Subjective: Interval history: 24-year-old female G2, P1 s/p primary C- section for breech presentation at 39 weeks. Patient is doing well without complaints. She denies headaches blurred vision, shortness of breath or chest pain. She has voided, passing gas and has ambulated well in the room. Patient is encouraged to increase fluids, high-fiber diet and ambulation to the hallway. She is encouraged to shower, incision instructions given. Pain meds and risk reviewed as well. Patient verbalizes understanding. Labor: Amniotic Membrane Status: Intact Monitor Mode: External C ontraction Pattern: Absent Vitals/I&O/Wt Last Vital Signs Temp 97.9 F 10/23/24 19:44 Pulse 77 10/24/24 04:32 Resp 16 10/23/24 19:44 BP 118/59 10/24/24 04:32 Pulse Ox 96 10/23/24 08:45 O2 Del Method Room Air 10/23/24 08:45 10/23/24 10/24/24 10/24/24 22:59 06:59 14:59 Output Total 400 / 2325 Balance -400 / -425 Weight last 48 hrs Weight 102.058 kg Physical Exam 2 Back/Pelvis: OTHER: Abdomen?soft, fundus firm below umbilicus. Incision?bandage removed, clean dry and intact. Extremity: COMMON NORMALS: normal to inspection, no clubbing, cyanosis or edema and no calf tenderness Urinary Catheter Management: Latex Free: Cath Placed During This Visit: yes, but has since been removed by the nurse Reason for Continuing Indwelling Catheter: Decision to DC Catheter Urinary Catheter Date of Insertion: 10/23/24 Urinary Catheter Time of Insertion: 07:10 Date Urinary Catheter Removed: 10/23/24 Time Urinary Catheter Discontinued: 18:45 Data 10/23/24 19:46 A&P Assessment and plan (1) Delivery by section: POD #1 doing well. (2) 39 weeks gestation of : (3) Breech presentation, antepartum: PDMP PDMP Reviewed: Not Reviewed Attestations 2 Medical Necessity Statement*: Patient was admitted to labor and delivery for scheduled primary section due to malpresentation (breech) Coding Level of Care Code Acute Code for Chg Fwd Diagnoses Delivery by section 39 weeks gestation of Z3A.39 Breech presentation with problem, single or unspecified fetus O32.1XX0 Fetus number: single or unspecified fetus
[2024-10-24] MEDS: ferrous sulfate EC 325 mg Tablet PO (10:46)
[2024-10-24] MEDS: docusate sodium 100 mg Capsule PO ×2 (10:46→20:09)
[2024-10-24] MEDS: PRENATAL VIT NO.130/IRON/FOLIC 1 EACH TABLET PO (10:46)
[2024-10-24] MEDS: acetaminophen 325 mg Tablet 650 MG PO (10:46)
[2024-10-24 11:18] VITALS: BP 124/77; PULSE 87
[2024-10-24] MEDS: ibuprofen 800 mg tablet PO ×3 (12:54→20:09)
[2024-10-24] MEDS: simethicone 80 mg Chew PO (12:55)
[2024-10-24 20:09] VITALS: BP 124/67; PULSE 88; RESP 16; TEMP 37.1
[2024-10-25] MEDS: acetaminophen 325 mg Tablet 650 MG PO (02:08)
[2024-10-25 04:01] VITALS: BP 124/72; PULSE 85
[2024-10-25] MEDS: ibuprofen 800 mg tablet PO (08:39)
[2024-10-25] MEDS: PRENATAL VIT NO.130/IRON/FOLIC 1 EACH TABLET PO (08:39)
[2024-10-25] MEDS: docusate sodium 100 mg Capsule PO (08:39)
[2024-10-25 11:32] VITALS: BP 129/76; PULSE 71; TEMP 36.7
--- NOTE | 2024-10-25 11:38 | PM.OBGYDC ---
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 Patient is doing well and without complaints. She denies headaches, blurred vision, shortness of breath or chest pain. She denies excessive bleeding and passage of large clots. Patient is attempting breast-feeding but having trouble with latching. consultation has been performed and patient verbalizes understanding of techniques, urged to have patient's and to continue attempting to breast-feed. Postop expectations reviewed to include no heavy lifting pushing or pulling, no sexual intercourse douching or tampons x 6 weeks. Patient is encouraged to continue vitamins with iron throughout breast-feeding, and encouraged to continue a high-fiber diet with increased fluids. Patient is voiding and passing flatus but has not passed a stool. She is encouraged to continue stool softeners until she has a stool. Patient understands. Incisional care was reviewed, patient to shower daily keeping incision clean and dry. If incision gets red or starts draining she is to contact the clinic to be seen or call labor and delivery. Status: Acute (2) 39 weeks gestation of : Status: Acute (3) Breech presentation, antepartum: Status: Acute Qualifiers: Fetus number: single or unspecified fetus Qualified Code(s): O32.1XX0 - Maternal care for breech presentation, not applicable or unspecified Reason for Visit Reason for Visit: [id number] Brief History: 24-year-old female G2, P1 admitted to labor and delivery for elective primary section due to breech presentation at 39 weeks gestation. care has been uncomplicated. Patient is on levothyroxine with history of a thyroid cyst. She has history of social anxiety but presently on no antianxiety medication. Patient's postoperative course has progressed well and has been uneventful. Hospital Course Hospital Course See above Information Peripartum Data: Delivery Method: Physical Exam Back/Pelvis: OTHER: Abdomen?soft, fundus firm, 4 cm below the umbilicus. Incision clean dry and intact. Lochia?rubra light. Extremity: COMMON NORMALS: normal to inspection, no clubbing, cyanosis or edema and no calf tenderness Urinary Catheter Management: Latex Free: Cath Placed During This Visit: yes, but has since been removed by the nurse Reason for Continuing Indwelling Catheter: Decision to DC Catheter Urinary Catheter Date of Insertion: 10/23/24 Urinary Catheter Time of Insertion: 07:10 Date Urinary Catheter Removed: 10/23/24 Time Urinary Catheter Discontinued: 18:45 History History History 2 Term 1 0 Miscarriages/Ectopic 1 Living Children 1 Past Pregnancies Del. Date GA/Weeks Outcome Route Wt Inf Gender Labor Lgth Comp. Anesthesia Location 10/23/24 39 live - full term Male regional Discharge Data Studies Completed and Pending Laboratory Results WBC 10.45 10^3/uL (3.29-11.43) 10/23/24 19:46 RBC 3.52 10^6/uL (3.85-5.65) L 10/23/24 19:46 Hgb 11.00 g/dL (11.27-16.99) L 10/23/24 19:46 Hct 32.4 % (36-47) L 10/23/24 19:46 MCV 92.0 fl (85-98) 10/23/24 19:46 MCH 31.3 pg (27-33) 10/23/24 19:46 MCHC 34.0 g/dL (30-55) 10/23/24 19:46 RDW 13.3 % (12.1-15.1) 10/23/24 19:46 Plt Count 208 10^3/cmm (157-399) 10/23/24 19:46 MPV 9.8 fL (7.4-10.4) 10/23/24 19:46 Neut % (Auto) 64.3 % 10/23/24 05:20 Lymph % (Auto) 25.5 % 10/23/24 05:20 Kane % (Auto) 8.6 % 10/23/24 05:20 Eos % (Auto) 0.8 % 10/23/24 05:20 Baso % (Auto) 0.3 % 10/23/24 05:20 Neut # (Auto) 5.64 10^3/uL (1.8-7.7) 10/23/24 05:20 Lymph # (Auto) 2.2 10^3/uL (0.8-4.8) 10/23/24 05:20 Kane # (Auto) 0.8 10^3/uL (0.2-0.9) 10/23/24 05:20 Eos # (Auto) 0.1 10^3/uL (0.0-0.8) 10/23/24 05:20 Baso # (Auto) 0.0 10^3/uL (0.0-0.1) 10/23/24 05:20 Nucleated RBC % (auto) 0 % 10/23/24 05:20 Nucleated RBCs # 0.0 /100WBC 10/23/24 05:20 Blood Type A Positive 10/23/24 05:20 Rho(D) Type Rh positive 10/23/24 05:20 Antibody Screen Negative 10/23/24 05:20 Vitals Last Vital Signs Temp 98.8 F 10/24/24 20:09 Pulse 71 10/25/24 11:32 Resp 16 10/24/24 20:09 BP 129/76 10/25/24 11:32 Pulse Ox 96 10/23/24 08:45 O2 Del Method Room Air 10/23/24 08:45 Results Labs OB ([facility]): Obstetrics US 09/21/24 Blood Type A Positive 10/23/24 Antibody Screen Negative 10/23/24 Hct, (36-47) 32.4 % L 10/23/24 Hgb, (11.27-16.99) 11.00 g/dL L 10/23/24 Rho(D) Type Rh positive 10/23/24 Plt Count, (157-399) 208 10^3/cmm 10/23/24 Hep Bs Antigen, (Nonreactive) Non-reactive 04/07/24 Hepatitis C Antibody, (Nonreactive) Non-reactive 04/07/24 Rubella IgG Antibody, (0.0-10.0) 75.3 IU/mL H 04/07/24 RPR, (Nonreactive) Nonreactive 04/07/24 HIV 1&2 Ab & HIV 1 Ag, (Non-Reactiv) Non-reactive 04/07/24 TSH, (0.27-4.20) 2.83 uIU/mL 04/07/24 C.trachomatis RNA (TMA), (NOT DETECTED) Not detected 04/07/24 N.gonorrhoeae RNA (TMA), (NOT DETECTED) Not detected 04/07/24 T. vaginalis Amp RNA, (NOT DETECTED) Not detected 04/07/24 Chlamydia/GC Comment See note 04/07/24 Glucose 1 Hr 50 gm, (85-140) 115 mg/dL 08/10/24 Progesterone 9.52 ng/mL 03/19/23 Ser , Semi-Qnt 99401.00 mIU/mL 03/04/24 HCG, Qual, (Negative) Positive H 02/26/24 Urine Opiates Screen, (Negative) Negative ng/mL 04/07/24 Ur Barbiturates Screen, (Negative) Negative ng/mL 04/07/24 Ur Phencyclidine Scrn, (Negative) Negative ng/mL 04/07/24 Ur Amphetamines Screen, (Negative) Negative ng/mL 04/07/24 U Benzodiazepines Scrn, (Negative) Negative ng/mL 04/07/24 Urine Cocaine Screen, (Negative) Negative ng/mL 04/07/24 U Marijuana (THC) Screen, (Negative) Negative ng/mL 04/07/24 Micro Urine Specimen 04/07/24 Pap Smear Interpret See note 04/22/24 Discharge Plan Discharge Patient Disposition: Home Condition: Stable Prescriptions: New hydrocodone-acetaminophen 5-325 mg Tablet 1 - 2 tab PO Q4H PRN (Reason: Moderate To Severe Pain) Qty: 10 0RF Discontinued famotidine 20 mg tablet See Rx Instructions .ROUTE .COMPLEX Qty: 60 2RF Dose Instruction: TAKE ONE TABLET BY MOUTH TWICE DAILY Rx Instructions: TAKE ONE TABLET BY MOUTH TWICE DAILY No Action levothyroxine 25 mcg tablet 50 mcg PO DAILY 1 mg Tablet 1 tab PO 1XD Discharge Orders: Discharge Order (Routine); Ordered 10/25/24 Ordered By: Asya Vanegas Referrals: Naldo Banerjee MD [Physician, TECHNICAL PRODUCER] Referral Note: FOLLOW UP WITH DR. BANERJEE 10/28/24 AT 0815. Discharge Diet: Regular Discharge Activity: Increase activity as tolerated Patient Instructions: Depression (DC), Abnormal (Dysfunctional) Uterine Bleeding (DC), Perineal Care (DC), Bleeding (DC), Preeclampsia and Eclampsia After Delivery (GEN), OB [facility], OB Discharge Report, Opioid Safety, OB Home Care, Abnormal Bleeding Activity Restrictions/Additional Instructions: No heavy lifting pushing or pulling. No sexual intercourse x 6 weeks. Patient to shower only keeping incision clean and dry. Patient to resume her home meds to include vitamins, famotidine, levothyroxine. Assessment: 1. S/p primary LTCS at 39 weeks gestation. Plan of Treatment: DC to home Follow-up 2 weeks at the women[facility] clinic for postoperative evaluation. Discharge Attestations TECHNICAL PRODUCER Time Spent in Discharge Care*: less than 30 min Coding Level of Care Code Acute Code for Chg Fwd Diagnoses Delivery by section 39 weeks gestation of Z3A.39 Breech presentation with problem, single or unspecified fetus O32.1XX0 Fetus number: single or unspecified fetus
[2024-10-25 13:00] VITALS: BP 129/76; PULSE 71; TEMP 36.7; O2SAT 98
== END 2024-10-25 12:30 | disposition home or self-care (01) | DRG 788 ==
PROVIDERS: Admitting Provider Obstetrics & Gynecology; PCP Nurse Practitioner Family; Visit Provider Obstetrics & Gynecology
PROC: 10D00Z1 Extraction of Products of Conception, Low, Open Approach (ICD-10-PCS; CPT 59514; principal; 2024-10-23 07:00)
DX: O32.1XX0 Maternal care for breech presentation, not applicable or unspecified (principal); Z3A.39 39 weeks gestation of pregnancy; Z37.0 Single live birth; K21.9 Gastro-esophageal reflux disease without esophagitis; E04.1 Nontoxic single thyroid nodule; L30.9 Dermatitis, unspecified; Z86.59 Personal history of other mental and behavioral disorders; O99.62 Diseases of the digestive system complicating childbirth; O99.284 Endocrine, nutritional and metabolic diseases complicating childbirth; O99.72 Diseases of the skin and subcutaneous tissue complicating childbirth
CPT/HCPCS: 36415; 51702; 59409; 84315; 85025; 85027; 86850; 86900; 96374; 96376; J0690; J1885; J2274; J2371; J2405; J2765; J3010; J3490; J7030; J7121; J9999